=== PATIENT | female | born 1965 | race Caucasian/White ===

== ENCOUNTER → 2016-12-24 | Outpatient (CLI) | payer BC ==
[2016-12-24 15:08] LABS: BASO % 0.4 %; BASO ABS # 0.02 K/uL (0-0.2); COMPLETE YES; EOS % 1.8 %; HEMATOCRIT 38.7 % (37-47); IG% 0.2 %; LYMPH % 42.3 %; LYMPH ABS # 2.34 K/uL (1.2-3.4); MEAN CORPUSCULAR HEMOGLOBIN 30.2 pg (25-34); MEAN CORPUSCULAR HGB CONC 33.6 g/dl (32-36); MEAN PLATELET VOLUME 11.6 fL (7.4-10.4); MONO % 5.2 %; NEUT % 50.1 %; PLATELET COUNT 189 K/uL (130-400); WHITE BLOOD COUNT 5.53 K/uL (4.8-10.8)
[2016-12-24 15:33] LABS: FERRITIN 44.3 ng/ml (8.0-388.0); THYROID STIMULATING HORMONE 1.09 uIu/ml (0.300-4.500)
[2016-12-28 16:31] LABS: MICROSOMAL AB <1 IU/ML (<9); T3 REVERSE **TC 90963 17 ng/dL (8-25)
== END | disposition home or self-care (01) ==
LOC: C.LAB 13:00
PROVIDERS: ATTEND Chiropractor
DX: M79.1 Myalgia (principal)

== ENCOUNTER → 2017-04-09 | Outpatient (CLI) | payer BC ==
--- NOTE | 2017-04-09 12:22 | DIAGNOSTIC IMAGING REPORT ---
ULTRASOUND RIGHT UPPER QUADRANT ABDOMEN CLINICAL HISTORY: Right upper quadrant abdominal pain. COMPARISON STUDY: No priors. TECHNIQUE: Real-time, grayscale, and color flow sonography of the right upper quadrant of the abdomen was performed. Images are reviewed in the transverse and longitudinal planes. FINDINGS: Liver: The liver is normal in size and echotexture. There is no intrahepatic biliary ductal dilatation. The main portal vein is patent. Gallbladder: The gallbladder is normal in appearance. No gallstones are identified. There is no gallbladder wall thickening or pericholecystic fluid. A sonographic Landaverde's sign is reportedly absent. The common bile duct measures up to 0.4 cm in diameter. Pancreas: Visualized portions of the pancreatic head and body are normal in appearance. Right kidney: Survey images of the right kidney demonstrate normal size and echotexture. There is no hydronephrosis. Ascites: None. IMPRESSION: No acute sonographic abnormality is seen in the right upper quadrant. No gallstones are identified. Electronically signed by: Jony Helton M.D. 04/09/2017 12:21 PM Dictated Date/Time: 04/09/2017 12:20 PM
== END | disposition home or self-care (01) ==
LOC: C.ULTR 11:58
PROVIDERS: ATTEND Family Medicine
DX: R10.11 Right upper quadrant pain (principal)